=== PATIENT | male | born 1950 | race Caucasian/White ===

== ENCOUNTER 2023-06-20 16:29 | Emergency (ER) | payer SELFPAY ==
[2023-06-20] VITALS (11 sets, daily range): BP systolic 90–150; BP diastolic 61–90; PULSE 70–93; RESP 14–16; TEMP 36.6–36.8; O2SAT 95–99; BMI 32.0
--- NOTE | 2023-06-20 16:33 | PC.NURSE ---
c collar placed on pt
--- NOTE | 2023-06-20 16:38 | PC.NURSE ---
DR NOBLES AT BEDSIDE, TRAUMA ALERT, CALLED
--- NOTE | 2023-06-20 16:40 | PC.NURSE ---
TRAUMA ALERT CANCELLED PER DR NOBLES, WILL PROCEED WITH TRAUMA SCANS
--- NOTE | 2023-06-20 16:40 | PC.NURSE ---
Dr. Hall at BS for pt eval
--- NOTE | 2023-06-20 16:44 | PC.NURSE ---
DR NOBLES AT BEDSIDE FOR FAST EXAM
--- NOTE | 2023-06-20 16:48 | XR_ITS ---
PROCEDURE INFORMATION: Exam: XR Pelvis Exam date and time: 06/20/2023 5:49 PM Age: 72 years old Clinical indication: Injury or trauma; Fall; Blunt trauma (contusions or hematomas); Bilateral; Pelvic region; Additional info: Fall, trauma TECHNIQUE: Imaging protocol: Radiologic exam of the pelvis. Views: 1 or 2 view. COMPARISON: CT ANGIO ABDOMEN PELVIS 06/20/2023 5:44 PM FINDINGS: Bones/joints: No acute fracture or malalignment. Soft tissues: Unremarkable. IMPRESSION: No acute osseous findings.
--- NOTE | 2023-06-20 16:48 | XR_ITS ---
PROCEDURE INFORMATION: Exam: XR Right Humerus Exam date and time: 06/20/2023 5:49 PM Age: 72 years old Clinical indication: Injury or trauma; Fall; Blunt trauma (contusions or hematomas); Arm, upper; Right; Additional info: Fall, R shoulder through hand pain. TECHNIQUE: Imaging protocol: Radiologic exam of the right humerus. Views: 2 or more views. COMPARISON: CR XR SHOULDER RT MIN 2V 06/20/2023 5:49 PM FINDINGS: Bones/joints: Inferior shoulder dislocation. No identifiable acute fracture. Inferior glenoid subchondral cystic changes. Olecranon enthesopathy. Soft tissues: Normal. IMPRESSION: Inferior shoulder dislocation.
--- NOTE | 2023-06-20 16:48 | XR_ITS ---
PROCEDURE INFORMATION: Exam: XR Right Hand Exam date and time: 06/20/2023 5:49 PM Age: 72 years old Clinical indication: Injury or trauma; Fall; Blunt trauma (contusions or hematomas); Hand; Right; Additional info: Fall, R shoulder through hand pain. TECHNIQUE: Imaging protocol: Radiologic exam of the right hand. Views: 3 or more views. COMPARISON: CR XR WRIST RT MIN 3V 06/20/2023 5:49 PM FINDINGS: Bones/joints: No acute fracture or malalignment. 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 Several joints demonstrate periarticular calcifications. Soft tissues: Normal. IMPRESSION: No acute osseous findings.
--- NOTE | 2023-06-20 16:48 | XR_ITS ---
PROCEDURE INFORMATION: Exam: XR Right Elbow Exam date and time: 06/20/2023 5:49 PM Age: 72 years old Clinical indication: Injury or trauma; Fall; Blunt trauma (contusions or hematomas); Elbow; Right; Additional info: Fall, R shoulder through hand pain. TECHNIQUE: Imaging protocol: Radiologic exam of the right elbow. Views: 1 or 2 views. COMPARISON: CR XR HAND RT MIN 3V 06/20/2023 5:49 PM FINDINGS: Bones/joints: No acute fracture or malalignment. Olecranon enthesopathy. No joint effusion. Soft tissues: Normal. IMPRESSION: No acute osseous findings.
--- NOTE | 2023-06-20 16:48 | XR_ITS ---
PROCEDURE INFORMATION: Exam: XR Chest Exam date and time: 06/20/2023 5:49 PM Age: 72 years old Clinical indication: Injury or trauma; Fall; Blunt trauma (contusions or hematomas); Additional info: Fall, R shoulder pain TECHNIQUE: Imaging protocol: Radiologic exam of the chest. Views: 1 view. COMPARISON: CT ANGIO CHEST 06/20/2023 5:44 PM FINDINGS: Lungs: Minimal right middle lobe atelectasis. No consolidation. Pleural spaces: No pleural effusion. No pneumothorax. Heart/Mediastinum: No cardiomegaly. Diaphragm: Right diaphragmatic elevation. Bones/joints: Right inferior shoulder dislocation. IMPRESSION: 1. No acute pulmonary findings 2. Right inferior shoulder dislocation.
--- NOTE | 2023-06-20 16:48 | XR_ITS ---
PROCEDURE INFORMATION: Exam: XR Right Shoulder Exam date and time: 06/20/2023 5:49 PM Age: 72 years old Clinical indication: Injury or trauma; Fall; Blunt trauma (contusions or hematomas); Shoulder; Right; Additional info: Fall, R shoulder through hand pain. TECHNIQUE: Imaging protocol: Radiologic exam of the right shoulder. Views: 2 or more views. COMPARISON: CR XR HUMERUS RT 06/20/2023 5:49 PM FINDINGS: Bones/joints: Inferior shoulder dislocation. No identifiable acute fracture. Inferior glenoid subchondral cystic changes. Soft tissues: Normal. IMPRESSION: Inferior shoulder dislocation.
--- NOTE | 2023-06-20 16:48 | XR_ITS ---
PROCEDURE INFORMATION: Exam: XR Right Wrist Exam date and time: 06/20/2023 5:49 PM Age: 72 years old Clinical indication: Injury or trauma; Fall; Blunt trauma (contusions or hematomas); Wrist; Right; Additional info: Fall, R shoulder through hand pain. TECHNIQUE: Imaging protocol: Radiologic exam of the right wrist. Views: 3 or more views. COMPARISON: CR XR HAND RT MIN 3V 06/20/2023 5:49 PM FINDINGS: Bones/joints: No acute fracture or malalignment. 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 Amorphous calcifications adjacent to the distal ulna may represent calcific tendinitis. Soft tissues: Normal. IMPRESSION: No acute osseous findings.
--- NOTE | 2023-06-20 16:49 | CT_ITS ---
PROCEDURE INFORMATION: Exam: CTA Head With Contrast, Arteriography Exam date and time: 06/20/2023 5:40 PM Age: 72 years old Clinical indication: Injury or trauma; Fall; Blunt trauma; Head and neck; Additional info: Trauma, critical injury suspected TECHNIQUE: Imaging protocol: Computed tomographic angiography of the head with contrast. Exam focused on the arteries. 3D rendering (Not supervised by radiologist): MIP and/or 3D reconstructed images were created by the technologist. Radiation optimization: All CT scans at this facility use at least one of these dose optimization techniques: automated exposure control; mA and/or kV adjustment per patient size (includes targeted exams where dose is matched to clinical indication); or iterative reconstruction. Contrast material: ISO 370; Contrast volume: 100 ml; Contrast route: INTRAVENOUS (IV); COMPARISON: CT HEAD/BRAIN WO CON 06/20/2023 5:40 PM FINDINGS: ANTERIOR CIRCULATION: Right internal carotid artery: Intracranial segment is patent with no significant stenosis. No aneurysm. Right middle cerebral artery: No occlusion or significant stenosis. No aneurysm. Right anterior cerebral artery: No occlusion or significant stenosis. No aneurysm. Left internal carotid artery: Intracranial segment is patent with no significant stenosis. No aneurysm. Left middle cerebral artery: No occlusion or significant stenosis. No aneurysm. Left anterior cerebral artery: No occlusion or significant stenosis. No aneurysm. POSTERIOR CIRCULATION: Right vertebral artery: No occlusion or significant stenosis. No aneurysm. Left vertebral artery: No occlusion or significant stenosis. No aneurysm. Basilar artery: No occlusion or significant stenosis. No aneurysm. Right posterior cerebral artery: No occlusion or significant stenosis. No aneurysm. Left posterior cerebral artery: No occlusion or significant stenosis. No aneurysm. Brain: Regions of encephalomalacia/gliosis in the anterior frontal lobes are re-identified Cerebral ventricles: No ventriculomegaly. Bones/joints: Unremarkable. No acute fracture. Soft tissues: Unremarkable. IMPRESSION: No large vessel stenosis or occlusion.
--- NOTE | 2023-06-20 16:49 | CT_ITS ---
PROCEDURE INFORMATION: Exam: CT Cervical Spine Without Contrast Exam date and time: 06/20/2023 5:33 PM Age: 72 years old Clinical indication: Injury or trauma; Fall; Blunt trauma; Additional info: Trauma, critical injury suspected TECHNIQUE: Imaging protocol: Computed tomography of the cervical spine without contrast. Radiation optimization: All CT scans at this facility use at least one of these dose optimization techniques: automated exposure control; mA and/or kV adjustment per patient size (includes targeted exams where dose is matched to clinical indication); or iterative reconstruction. COMPARISON: No relevant prior studies available. FINDINGS: Bones/joints: Congenital non-fusion of the posterior arch of C1. Vertebral alignment is maintained. There is preservation of vertebral body heights. Facet joints are aligned. Odontoid process is intact. Atlantoaxial interval maintained. No acute fracture. Uncovertebral and facet arthropathy result in varying degrees of neural foraminal narrowing at multiple levels. Status post C3-C6 right hemilaminectomies. Cerclage wires and transpedicular rods are intact. Lungs: Lung apices are normal. Soft tissues: Prevertebral and paravertebral soft tissues are maintained IMPRESSION: No acute fracture. No traumatic subluxation.
--- NOTE | 2023-06-20 16:49 | CT_ITS ---
PROCEDURE INFORMATION: Exam: CT Head Without Contrast Exam date and time: 06/20/2023 5:40 PM Age: 72 years old Clinical indication: Injury or trauma; Fall; Blunt trauma (contusions or hematomas); Additional info: Trauma, critical injury suspected TECHNIQUE: Imaging protocol: Computed tomography of the head without contrast. Radiation optimization: All CT scans at this facility use at least one of these dose optimization techniques: automated exposure control; mA and/or kV adjustment per patient size (includes targeted exams where dose is matched to clinical indication); or iterative reconstruction. COMPARISON: CT ANGIO HEAD 06/20/2023 5:40 PM FINDINGS: Brain: Bilateral regions of encephalomalacia/gliosis in the anterior frontal lobes. There is no evidence of acute intracranial hemorrhage, extra-axial collection or locoregional mass effect. There are scattered hypodensities in the periventricular and subcortical white matter. The appearance is nonspecific, but most likely represents chronic small vessel disease in a person of this age Cerebral ventricles: The ventricles, sulci and cisterns are normal in size and configuration for patient's age. No hydrocephalus or midline structure shift Pituitary gland and sella: Sellar/parasellar structures, craniocervical junction and orbits are unremarkable Paranasal sinuses: Visualized sinuses are unremarkable. No fluid levels. Mastoid air cells: Visualized mastoid air cells are well aerated. Bones/joints: No calvarial fracture Soft tissues: Unremarkable. IMPRESSION: 1. No acute intracranial abnormality. No calvarial fracture. 2. Bilateral regions of encephalomalacia/gliosis in the anterior frontal lobes.
--- NOTE | 2023-06-20 16:49 | CT_ITS ---
PROCEDURE INFORMATION: Exam: CTA Abdomen and Pelvis With Contrast Exam date and time: 06/20/2023 5:44 PM Age: 72 years old Clinical indication: Injury or trauma; Fall; Blunt trauma; Lower abdominal or back area; Bilateral; Additional info: Trauma, critical injury suspected TECHNIQUE: Imaging protocol: Computed tomographic angiography of the abdomen and pelvis with contrast. Exam focused on the arteries. 3D rendering (Not supervised by radiologist): MIP and/or 3D reconstructed images were created by the technologist. Radiation optimization: All CT scans at this facility use at least one of these dose optimization techniques: automated exposure control; mA and/or kV adjustment per patient size (includes targeted exams where dose is matched to clinical indication); or iterative reconstruction. Contrast material: ISO 370; Contrast volume: 100 ml; Contrast route: INTRAVENOUS (IV); COMPARISON: CT ANGIO CHEST 06/20/2023 5:44 PM FINDINGS: Aorta: Mild atherosclerosis. No aortic aneurysm. No aortic dissection. Celiac trunk and mesenteric arteries: No occlusion or significant stenosis. Renal arteries: No occlusion or significant stenosis. Right iliac arteries: No occlusion or significant stenosis. Left iliac arteries: No occlusion or significant stenosis. Liver: Subcentimeter hypodense focus within the peripheral right hepatic lobe, too small to fully characterize, although may represent a cyst. Gallbladder and bile ducts: Unremarkable. No calcified stones. No ductal dilation. Pancreas: No mass. Mildly dilated proximal main pancreatic duct measuring up to 6 mm without identifiable obstructing process. Spleen: Small calcified granulomas. No splenomegaly. Adrenal glands: Bilateral adrenal gland thickening. Kidneys and ureters: Unremarkable. No solid mass. No hydronephrosis. Stomach and bowel: Fecalization of the terminal ileum indicative of delayed transit. No obstruction. No mucosal thickening. Appendix: No evidence of appendicitis. Intraperitoneal space: Unremarkable. No free air. No significant fluid collection. Lymph nodes: Unremarkable. No enlarged lymph nodes. Urinary bladder: Unremarkable. No mass. Reproductive: Postprocedural changes of the prostate Bones/joints: No acute fracture. Degenerative changes. Soft tissues: Postsurgical changes of inguinal hernia repair. Small fat containing periumbilical hernia. IMPRESSION: 1. No acute posttraumatic findings within the abdomen or pelvis. 2. Nonspecific mildly dilated proximal main pancreatic duct measuring up to 6 mm without identifiable obstructing process.
--- NOTE | 2023-06-20 16:49 | CT_ITS ---
PROCEDURE INFORMATION: Exam: CT Thoracic Spine Without Contrast Exam date and time: 06/20/2023 5:35 PM Age: 72 years old Clinical indication: Injury or trauma; Fall; Blunt trauma (contusions or hematomas); Additional info: Trauma, critical injury suspected TECHNIQUE: Imaging protocol: Computed tomography of the thoracic spine without contrast. Radiation optimization: All CT scans at this facility use at least one of these dose optimization techniques: automated exposure control; mA and/or kV adjustment per patient size (includes targeted exams where dose is matched to clinical indication); or iterative reconstruction. COMPARISON: CT CERVICAL SPINE WO CON 06/20/2023 5:33 PM FINDINGS: Bones/joints: Thoracic vertebrae normal in height. Mild dextroconvex curvature. T3 vertebral body osseous hemangioma. No acute fracture. Multilevel degenerative changes. Right T10-11 and T11-12 neural foraminal narrowing. No severe spinal canal stenosis. Soft tissues: Minimal upper back subcutaneous soft tissue swelling. IMPRESSION: No acute osseous findings.
--- NOTE | 2023-06-20 16:49 | CT_ITS ---
PROCEDURE INFORMATION: Exam: CTA Chest With Contrast Exam date and time: 06/20/2023 5:44 PM Age: 72 years old Clinical indication: Injury or trauma; Fall; Blunt trauma (contusions or hematomas); Additional info: Trauma, critical injury suspected TECHNIQUE: Imaging protocol: Computed tomographic angiography of the chest with contrast. Exam focused on the arteries. 3D rendering (Not supervised by radiologist): MIP and/or 3D reconstructed images were created by the technologist. Radiation optimization: All CT scans at this facility use at least one of these dose optimization techniques: automated exposure control; mA and/or kV adjustment per patient size (includes targeted exams where dose is matched to clinical indication); or iterative reconstruction. Contrast material: ISO 370; Contrast volume: 100 ml; Contrast route: INTRAVENOUS (IV); COMPARISON: CT ANGIO ABDOMEN PELVIS 06/20/2023 5:44 PM FINDINGS: Pulmonary arteries: Normal. No pulmonary emboli. Aorta: Unremarkable. No aortic aneurysm. No aortic dissection. Lungs: Mild right middle and right lower lobe atelectasis. No consolidation. Few small calcified granulomas. No masses. Pleural spaces: Unremarkable. No pneumothorax. No pleural effusion. Heart: Unremarkable. No cardiomegaly. No pericardial effusion. Coronary arteries: No significant coronary artery calcifications. Lymph nodes: Small calcified mediastinal and hilar lymph nodes. No enlarged lymph nodes. Diaphragm: Right diaphragmatic elevation. Small hiatal hernia. Bones/joints: Degenerative changes. Right inferior shoulder dislocation. No acute fracture. Chronic appearing right posterior 11th rib fracture. Soft tissues: Unremarkable. IMPRESSION: 1. No acute posttraumatic findings within the chest. 2. Right inferior shoulder dislocation.
--- NOTE | 2023-06-20 16:49 | CT_ITS ---
PROCEDURE INFORMATION: Exam: CT Lumbar Spine Without Contrast Exam date and time: 06/20/2023 5:37 PM Age: 72 years old Clinical indication: Injury or trauma; Fall; Blunt trauma (contusions or hematomas); Additional info: Trauma, critical injury suspected TECHNIQUE: Imaging protocol: Computed tomography of the lumbar spine without contrast. Radiation optimization: All CT scans at this facility use at least one of these dose optimization techniques: automated exposure control; mA and/or kV adjustment per patient size (includes targeted exams where dose is matched to clinical indication); or iterative reconstruction. COMPARISON: CT THORACIC SPINE WO CON 06/20/2023 5:35 PM FINDINGS: Bones/joints: Lumbar vertebrae normal in height. Minimal retrolisthesis L2 on L3. No acute fracture. Multilevel degenerative changes. Varying degrees of neural foraminal narrowing. No severe spinal canal stenosis. Additional degenerative changes of the bilateral sacroiliac joints. Soft tissues: Unremarkable. IMPRESSION: No acute osseous findings.
--- NOTE | 2023-06-20 16:49 | CT_ITS ---
PROCEDURE INFORMATION: Exam: CTA Neck With Contrast Exam date and time: 06/20/2023 5:40 PM Age: 72 years old Clinical indication: Injury or trauma; Fall; Blunt trauma; Head and neck; Additional info: Trauma, critical injury suspected TECHNIQUE: Imaging protocol: Computed tomographic angiography of the neck with contrast. Exam focused on the cervical segments of the vasculature. 3D rendering (Not supervised by radiologist): MIP and/or 3D reconstructed images were created by the technologist. Radiation optimization: All CT scans at this facility use at least one of these dose optimization techniques: automated exposure control; mA and/or kV adjustment per patient size (includes targeted exams where dose is matched to clinical indication); or iterative reconstruction. Contrast material: ISO 370; Contrast volume: 100 ml; Contrast route: INTRAVENOUS (IV); COMPARISON: CT CERVICAL SPINE WO CON 06/20/2023 5:33 PM FINDINGS: Right common carotid artery: No stenosis. No dissection or occlusion. Right internal carotid artery: No stenosis of the extracranial segment. No dissection or occlusion. Right external carotid artery: No occlusion or stenosis of the origin. Left common carotid artery: No stenosis. No dissection or occlusion. Left internal carotid artery: No stenosis of the extracranial segment. No dissection or occlusion. Left external carotid artery: No occlusion or stenosis of the origin. Right vertebral artery: No stenosis. No dissection or occlusion. Left vertebral artery: No stenosis. No dissection or occlusion. Soft tissues: Normal. No significant soft tissue swelling. Bones/joints: For findings in the cervical spine, please refer to the separately dictated cervical spine CT report under a separate accession number. IMPRESSION: No stenosis or occlusion. REFERENCES: NASCET CRITERIA. The degree of stenosis in the cervical segment of the internal carotid artery is based on NASCET criteria. Normal is no stenosis. Mild is less than 50% stenosis. Moderate is 50-69% stenosis. Severe is 70% to 99% stenosis. Total occlusion is no detectable patent lumen.
--- NOTE | 2023-06-20 16:52 | ED_ITS ---
Discharge Plan Disposition Patient Disposition: Home, Self-Care Referrals Follow up/Referrals: Bassem Hanson DO [Staff Physician] - See instructions Provider,Referral, [Referring] - See instructions Activity Restrictions/Add. Instructions Additional Instructions/Restrictions: Call your family doctor to establish care for this visit to the emergency department and schedule follow-up within 48 hours to ensure improvement. If you have any worsening of your condition or any other concerning signs or symptoms, return to the emergency department or your primary care doctor for further evaluation. Call Dr. Hanson, orthopedics, for further care for your shoulder dislocation. Do not bear weight on right shoulder. Wear sling at all times other than when sleeping to prevent strangulation, until follow-up with Dr. Hanson. Clinical Impressions Clinical Impression: Closed dislocation of right shoulder Qualifiers: Encounter type: initial encounter Qualified Code(s): S43.004A - Unspecified dislocation of right shoulder joint, initial encounter Fall Qualifiers: Encounter type: initial encounter Qualified Code(s): W19.XXXA - Unspecified fall, initial encounter Instructions Patient Instructions: DI for Moderate Sedation, Moderate Sedation Discharge ED Provider: Dominik Hall General Adult HPI General Chief complaint: Fall Stated complaint: AO02/14@1530 fall RT arm, hand, Time Seen by Provider: 06/20/23 16:31 Mode of Arrival: Wheelchair Limitations: No Limitations Description of Symptoms (Recalled from ER Triage Doc. by RN): Patient fell 15-20 feet off of a ladder injuring his right shoulder and cut his right hand. Denies LOC or blood thinner use. History of Present Illness HPI narrative: 72-year-old male no reported past medical history not currently on anticoagulation presenting with fall. Patient states that 2 hours prior to this ER visit, he was on a ladder approximately 15 feet up. Fell off the ladder, landed on his right shoulder. No loss of consciousness. Patient complaining of unbearable pain in his right shoulder that does not radiate. He is also complaining of a cut in his right hand. Denies chest pain, neck pain, back pain, nausea vomiting, abdominal pain, difficulty ambulating, or any other concerns. Related Data Allergies Allergy/AdvReac Type Severity Reaction Status Date / Time No Known Allergies Allergy Verified 06/20/23 16:42 [facility] Disclaimer: The information contained in this section may have been updated after the patient was seen, as this information can be updated by other users. Social History Smoking Status: Never smoker alcohol intake: never current occupational status: employed Travel in the last 8 weeks: None ROS Obtained: Yes All systems reviewed & no additional complaints except as documented Physical Exam General General appearance: alert and in distress (Secondary to pain) Head Head exam: atraumatic and normocephalic Eye Eye exam: Present normal appearance, PERRL and EOMI ENT ENT exam: Present mucous membranes moist Neck Neck exam: Present normal inspection, full ROM, trachea midline and other (Francine shahid in cervical collar out of precaution); Absent tenderness Chest Chest inspection: Present normal inspection and symmetric chest wall rise; Absent tenderness Respiratory Respiratory exam: Present normal lung sounds bilaterally; Absent respiratory distress, wheezes, stridor, accessory muscle use or prolonged expiratory phase Cardiovascular Cardiovascular exam: Present regular rate and normal rhythm Abdominal Exam Abdominal exam: Present soft; Absent distention, tenderness, guarding, rebound or rigidity Extremities Exam Extremities exam: Present other (Deformity at right proximal shoulder. Concern for dislocation. Neurovascularly intact with no evidence of sensory or motor deficits. Patient does have skin tears on right palm without obvious a bnormality.); Absent edema Back Exam Back exam: Present normal inspection; Absent tenderness or vertebral tenderness Neurological Exam Neurological exam: Present alert, oriented X3, CN II-XII intact, normal gait and other (Right upper extremity exam limited secondary to pain and swelling. Pulses intact. Concern for fracture versus fracture dislocation right shoulder. Sensation and motor intact to elbow, wrist, digits.) Skin Skin exam: Present warm and dry; Absent diaphoresis or erythema Medical Decision Making Medical Records Medical records reviewed: Yes I reviewed the patient's medical records. Fadi Inquiry Pt receiving controlled substance: No Fadi was queried for this patient: No Vital Signs: 06/20/23 16:30 06/20/23 16:43 06/20/23 17:00 Temperature 97.9 F 97.9 F Temperature Source Oral Oral Pulse Rate 71 Pulse Rate [Radial] 70 70 Respiratory Rate 16 16 Blood Pressure 125/62 Blood Pressure [Left Arm] 131/61 128/64 Blood Pressure Mean [Left Arm] 84 85 Blood Pressure Source Blood Pressure Source [Left Arm] Automatic Cuff Manual Cuff/ Auscultation Blood Pressure Position Blood Pressure Position [Left Arm] Sitting Sitting 02 Sat by Pulse Oximetry 98 98 97 Oxygen Delivery Method Room Air Room Air Room Air Oxygen Flow Rate (LPM) 06/20/23 18:32 06/20/23 19:09 06/20/23 19:14 Temperature 98.0 F 98.0 F Temperature Source Oral Oral Pulse Rate 81 Pulse Rate [Radial] 77 79 Respiratory Rate 15 15 Blood Pressure 134/72 Blood Pressure [Left Arm] 134/77 136/82 Blood Pressure Mean [Left Arm] 96 100 Blood Pressure Source Blood Pressure Source [Left Arm] Automatic Cuff Automatic Cuff Blood Pressure Position Blood Pressure Position [Left Arm] Supine Sitting 02 Sat by Pulse Oximetry 96 96 95 Oxygen Delivery Method Room Air Room Air Room Air Oxygen Flow Rate (LPM) 06/20/23 19:19 06/20/23 19:24 06/20/23 19:30 Temperature 98.0 F 98.0 F 98.0 F Temperature Source Oral Oral Oral Pulse Rate Pulse Rate [Radial] 87 93 H 89 Respiratory Rate 14 16 16 Blood Pressure Blood Pressure [Left Arm] 90/71 L 144/90 H 150/85 H Blood Pressure Mean [Left Arm] 77 108 106 Blood Pressure Source Blood Pressure Source [Left Arm] Automatic Cuff Automatic Cuff Automatic Cuff Blood Pressure Position Blood Pressure Position [Left Arm] Sitting Sitting Supine 02 Sat by Pulse Oximetry 96 98 98 Oxygen Delivery Method Nasal Cannula Nasal Cannula Room Air Oxygen Flow Rate (LPM) 6 6 06/20/23 19:29 06/20/23 20:34 Temperature 98.0 F 98.3 F Temperature Source Oral Oral Pulse Rate 70 Pulse Rate [Radial] 90 Respiratory Rate 16 16 Blood Pressure 105/69 L Blood Pressure [Left Arm] 144/90 H Blood Pressure Mean [Left Arm] 108 Blood Pressure Source Automatic Cuff Blood Pressure Source [Left Arm] Automatic Cuff Blood Pressure Position Sitting Blood Pressure Position [Left Arm] Supine 02 Sat by Pulse Oximetry 99 Oxygen Delivery Method Nasal Cannula Room Air Oxygen Flow Rate (LPM) 6 Lab Data Lab Results 06/20/23 16:44: WBC 7.7, RBC 4.20 L, Hgb 14.9, Hct 40.1 L, MCV 95.7 H, MCH 35.6 H, MCHC 37.2 H, RDW 13.3, Plt Count 264, MPV 8.7, Neut % (Auto) 64.6, Lymph % (Auto) 27.1, [place] % (Auto) 5.7, Eos % (Auto) 2.1, Baso % (Auto) 0.5, Neut # (Auto) 5.0, Lymph # (Auto) 2.1, [place] # (Auto) 0.4, Eos # (Auto) 0.2, Baso # (Auto) 0.0, PT 10.5, INR 0.97, APTT 22.7 L, Sodium 137, Potassium 3.7, Chloride 106, Carbon Dioxide 27, Anion Gap 7.7, BUN 15, Creatinine 1.00, Estimated Creat Clear 74, Estimated GFR 73, Est GFR ( Amer) 89, Glucose 142 H, Calcium 9.2, Total Bilirubin 0.4, AST 31, ALT 29, Alkaline Phosphatase 77, Total Protein 7.3, Albumin 4.2, Globulin 3.1, Albumin/Globulin Ratio 1.4 06/20/23 16:44 06/20/23 16:44 Orders (Tests/Meds): ED MEDICATIONS Discontinued Medications Generic Name Dose Route Start Last Admin Trade Name Freq PRN Reason Stop Dose Admin Hydromorphone HCl 0.5 mg 06/20/23 16:50 06/20/23 16:57 Hydromorphone 2mg/Ml Syringe IV 06/20/23 16:51 0.5 mg ONCE ONE Administration Hydromorphone HCl 0.5 mg 06/20/23 17:13 06/20/23 17:19 Hydromorphone 2mg/Ml Syringe IV 06/20/23 17:14 0.5 mg ONCE ONE Administration Iopamidol 200 ml 06/20/23 17:59 06/20/23 17:59 Iopamidol-370 (76%);100ml Bottle IV 06/20/23 18:00 200 ml ONCE ONE Administration Ketamine HCl 160 mg 06/20/23 18:23 06/20/23 20:07 Ketamine 50mg/1ml Syringe IV 06/20/23 18:24 25 mg ONCE ONE Administration Lidocaine HCl 10 ml 06/20/23 17:11 06/20/23 20:04 Lidocaine 1% 10ml Mdv SQ 06/20/23 17:12 10 ml ONCE ONE Administration Propofol 100 mg 06/20/23 18:25 06/20/23 20:03 Propofol 10mg/Ml 20ml Vial IV 06/20/23 18:26 100 mg ONCE ONE Administration Sodium Chloride 10 ml 06/20/23 16:52 Sodium Chloride 0.9% 10ml Flush Syringe IV 07/20/23 16:51 NEEDED PRN Maintain IV Site Sodium Chloride 50 ml 06/20/23 17:59 06/20/23 17:59 0.9 % Sodium Chloride 50 Ml Vial IV 06/20/23 18:00 50 ml ONCE ONE Administration Sodium Chloride 10 ml 06/20/23 17:59 06/20/23 17:59 Sodium Chloride 0.9% 10ml Syr (Rad Only) IV 06/20/23 18:00 10 ml ONCE ONE Administration Tetanus/Reduced Diphtheria/Acell Pertussis 0.5 ml 06/20/23 17:11 06/20/23 20:18 Tet/Diphth/Pert-Adult 0.5ml Syringe IM 06/20/23 17:12 0.5 ml .ONCE ONE Administration ORDERS Category Date Time Status CT angio abdomen pelvis Stat Cat Scan 06/20/23 16:[address] angio chest - dissection Stat Cat Scan 06/20/23 16:[address] angio head Stat Cat Scan 06/20/23 16:[address] angio neck Stat Cat Scan 06/20/23 16:[address] cervical spine wo con Stat Cat Scan 06/20/23 16:[address] head/brain wo con Stat Cat Scan 06/20/23 16:[address] lumbar spine wo con Stat Cat Scan 06/20/23 16:[address] thoracic spine wo con Stat Cat Scan 06/20/23 16:49 Completed Chest XR -- portable [XR chest portable] Stat Exams 06/20/23 16:48 Completed Elbow XR right 2 views [XR elbow RT 2V] Stat Exams 06/20/23 16:48 Completed Hand XR right minimum 3 views [XR hand RT min 3V] Stat Exams 06/20/23 16:48 Completed Humerus XR right [XR humerus RT] Stat Exams 06/20/23 16:48 Completed POCUS Point of Care (ER Only) Stat Exams 06/20/23 16:42 Completed Pelvis XR 1-2 views [XR pelvis 1-2V] Stat Exams 06/20/23 16:48 Completed Shoulder XR right miminum 2 views [XR shoulder RT min Exams 06/20/23 16:48 Completed 2V] Stat Wrist XR right minimum 3 views [XR wrist RT min 3V] Exams 06/20/23 16:48 Completed Stat XR shoulder RT 1V Stat Exams 06/20/23 19:18 Completed CBC w/Auto Diff [Complete Blood Count Auto Diff] Stat Lab 06/20/23 16:44 Completed CMP [Comprehensive Metabolic Panel] Stat Lab 06/20/23 16:44 Completed PT INR [Prothrombin Time INR] Stat Lab 06/20/23 16:44 Completed PTT [Activated Partial Thrombo Time] Stat Lab 06/20/23 16:44 Completed Medical Decision Narrative: 72-year-old male no reported past medical history not currently on anticoagulation presenting with fall. Patient states that 2 hours prior to this ER visit, he was on a ladder approximately 15 feet up. Fell off the ladder, landed on his right shoulder. No loss of consciousness. Patient complaining of unbearable pain in his right shoulder that does not radiate. He is also complaining of a cut in his right hand. Denies chest pain, neck pain, back pain, nausea vomiting, abdominal pain, difficulty ambulating, or any other concerns. History was obtained via conversation with patient. On arrival, patient hemodynamically stable, alert, oriented x4, appropriate, GCS 15, moving all extremities spontaneously, pupils equal and reactive to light. Full physical exam performed and significant for 72-year-old male who is in acute distress secondary to pain. Deformity right upper extremity at shoulder concerning for fracture dislocation versus isolated dislocation. Neurovascular ly intact distally to that. He does have superficial abrasions and lacerations on palm of right hand, but unable to fully evaluate secondary to immobility of right shoulder. Cardiopulmonary exam within normal limits, abdomen soft, nontender. Pelvis stable. No lower extremity pain. Differential includes dislocation, fracture, fracture dislocation, neurovascular injury, intracranial bleed, cervical spine fracture, intrathoracic versus intra- abdominal vascular injury, among others. Patient was given 0.5 mg Dilaudid IV for symptomatic management and correction of underlying abnormalities. Workup independently interpreted and significant for nonactionable CBC or chemistry. Coags negative. Trauma survey with CT independently interpreted. No acute vertebral injury of the C, T, L-spine. No intracranial hemorrhage. No acute intrathoracic, intra-abdominal or intrapelvic injuries. Right upper extremity films without concern for osseous injury, but patient does have right shoulder dislocation. See radiology read for full review of final results. On reevaluation, patient was consented for procedural sedation. Patient was sedated with propofol and ketamine. Shoulder was reduced. Postreduction films with successful reduction of shoulder. Postreduction neurovascular exam within normal limits. Patient was placed in sling, laceration on thenar eminence of right hand was cleaned and closed. Given patient presentation, workup, history, this most likely represents right upper extremity injuries in the setting of fall from 15 feet off a ladder. Because patient at baseline without signs or symptoms of clinical decompensation, deemed appropriate for discharge. Results w ere relayed to patient who voiced understanding and were agreeable to outpatient management and follow up. At the time of discharge the patient was hemodynamically stable, tolerating PO, and mobilizing appropriately. Procedures Laceration Laceration 1: Site: hand Side (If applicable): right Size (cm): 3 Description: linear and flap Depth: simple, single layer Local Anesthetic: lidocaine 1% Amount of anesthesia used (mL): 5 Pre-repair: wound explored and irrigated extensively Skin layer closed with: nylon Size (cm): 4-0 Number of sutures: 10 Technique: simple, interrupted Orthopedic Joint Reduction Joint #1: Time Out Performed: Yes Side: right Joint Reduction Location: shoulder Analgesia: procedural sedation Amount of anesthesic used (mL): 125 Shoulder Technique Used (if applicable): traction/counter-traction Technique used: traction/counter-traction Post-reduction neuro exam: intact and no change Post-reduction vascular: intact and no change Post Reduction X-Ray Obtained: Yes Post Reduction X-Ray Results: reduced Splint Applied: Yes (Sling) Patient Tolerated Procedure: well Procedural Sedation A heart and lung assessment was performed on this patient at: 19:20 Mallampati Score:: Class II Indication: fracture/dislocation reduction ASA Class: I Preparation: energy control officer applied, pulse oximeter, capnometry used, supplemental O2 applied, suction/airway equipment at bedside and IV secured Ketamine dose (mg): 25 IV Propofol dose (mg): 100 Patient Tolerated Procedure: well Complications: none Limited Ultrasound Indication:: Limited EFAST ultrasound Indication: Blunt trauma after fall Views: LUQ, RUQ, Pelvis, Limited Cardiac, Limited Thoracic Interpretation: Peritoneal Free Fluid: Absent Pericardial effusion: Absent Right thoracic free Fluid: Absent Left thoracic Free Fluid: Absent Right lung pneumothorax: Absent Left Lung pneumothorax: Absent Impression: Negative EFAST ultrasound Images were saved to permanent archive The study was technically adequate CPT 84551-68 (limited cardiac) 32689-86 (limited abdominal) 88701-10 (chest) This study was performed by me, and I personally interpreted all images/videos. Based on my clinical judgement, these images were adequate and did necessitate further imaging. Critical Care Critical Care Time Critical Care Time: Yes (orthopedic) Attestation: On 06/20/23, the high probability of a clinically significant, sudden or life threatening deterioration of the following system(s) required my full and direct attention, intervention and personal management. The time I documented below is in addition to time spent performing reported procedures but includes the following listed in this critical care notation. Total Time Total Critical Care Time: 45
[2023-06-20] MEDS: HYDROMORPHONE 2MG/ML SYRINGE 0.5 MG IV ×2 (16:57→17:19)
--- NOTE | 2023-06-20 17:00 | PC.NURSE ---
DR NOBLES AT BEDSIDE TO REEVALUATE PT AND UPDATE
--- NOTE | 2023-06-20 17:00 | PC.NURSE ---
Dr. Hall at BS to update pt/visitor on POC
[2023-06-20 17:17] LABS: Basophils % 0.5 % (0.1-2.0); Eosinophils # 0.2 K/mm3 (0.0-0.4); Eosinophils % 2.1 % (0.1-12.0); Hematocrit 40.1 % (42.0-52.0); Hemoglobin 14.9 g/dL (14.1-18.0); Lymphocytes # 2.1 K/mm3 (0.7-4.5); Lymphocytes % 27.1 % (10-50); Mean Corpuscular HGB Conc 37.2 g/dL (31.8-35.4); Mean Corpuscular Hemoglobin 35.6 pg (27.0-31.2); Mean Corpuscular Volume 95.7 fl (80-94); Mean Platelet Volume 8.7 fl (7.4-10.4); Monocytes # 0.4 K/mm3 (0.1-1.0); Monocytes % 5.7 % (1.7-9.3); Neutrophils % 64.6 % (37.0-80.0); Platelet Count 264 K/mm3 (142-424); Red Cell Distribution Width 13.3 % (11.5-17.5); White Blood Count 7.7 K/mm3 (4.8-10.8)
[2023-06-20 17:18] LABS: Chloride 106 mmol/L (98-107)
[2023-06-20 17:19] LABS: Potassium 3.7 mmoL/L (3.5-5.1); Sodium 137 mmol/L (136-145)
[2023-06-20 17:21] LABS: Alanine Aminotransferase 29 U/L (12-78); Albumin Level 4.2 g/dl (3.5-5.0); Alkaline Phosphatase 77 U/L (38-126); Aspartate Amino Transferase 31 U/L (17-59); Bilirubin,Total 0.4 mg/dl (0.2-1.3); Blood Urea Nitrogen 15 mg/dl (9-20); Creatinine Clearance Estimated 74 mL/min (50-200); Estimated Glomerular Filt Rate 73 ml/min (>60); GFR (African American) 89 ML/MIN (>60)
[2023-06-20 17:22] LABS: Albumin/Globulin Ratio 1.4 (1.1-1.8); Anion Gap 7.7 mEq/L (5-15); Calcium 9.2 mg/dl (8.4-10.2); Carbon Dioxide 27 mmol/L (22.0-30.0); Globulin 3.1 g/dL (1.3-3.2); Glucose 142 mg/dl (74-100); Total Protein,Serum 7.3 g/dl (6.3-8.2)
[2023-06-20 17:26] LABS: Activated Partial Thrombo Time 22.7 seconds (22.8-30.6); INR 0.97 (0.9-1.1); Prothrombin Time 10.5 seconds (10.1-12.5)
--- NOTE | 2023-06-20 17:27 | PC.NURSE ---
Pt gone to RAD via stretcher
[2023-06-20] MEDS: 0.9 % SODIUM CHLORIDE 50 ML VIAL IV (17:59)
[2023-06-20] MEDS: SODIUM CHLORIDE 0.9% 10ML SYR (RAD ONLY) 10 ML IV (17:59)
[2023-06-20] MEDS: IOPAMIDOL-370 (76%);100ML BOTTLE 200 ML IV (17:59)
--- NOTE | 2023-06-20 18:11 | PC.NURSE ---
Pt returned from RAD
--- NOTE | 2023-06-20 18:45 | PC.NURSE ---
DR NOBLES AT BEDSIDE TO EXPLAIN PROCEDURE TO PT AND
--- NOTE | 2023-06-20 19:18 | XR_ITS ---
PROCEDURE INFORMATION: Exam: XR Right Shoulder Exam date and time: 06/20/2023 7:27 PM Age: 72 years old Clinical indication: Abnormal findings; Abnormal imaging study of the limbs; Post reduction TECHNIQUE: Imaging protocol: Radiologic exam of the right shoulder. Views: 1 view. COMPARISON: CR XR SHOULDER RT MIN 2V 06/20/2023 5:49 PM FINDINGS: Bones/joints: Successful reduction of a previous inferior shoulder dislocation. No identifiable acute fracture. Soft tissues: Normal. IMPRESSION: Successful reduction of a previous inferior shoulder dislocation.
[2023-06-20] MEDS: PROPOFOL 10MG/ML 20ML VIAL 100 MG IV (20:03)
[2023-06-20] MEDS: LIDOCAINE 1% 10ML MDV 10 ML SQ (20:04)
[2023-06-20] MEDS: KETAMINE 50MG/1ML SYRINGE 160 MG IV (20:07)
[2023-06-20] MEDS: TET/DIPHTH/PERT-ADULT 0.5ML SYRINGE 0.5 ML IM (20:18)
--- NOTE | 2023-06-20 22:02 | PC.NURSE ---
chart accessed for ortho paperwork
== END 2023-06-20 20:35 | disposition home or self-care (01) ==
PROVIDERS: Emergency Provider Emergency Medicine; PCP Registered Nurse
DX: S43.034A Inferior dislocation of right humerus, initial encounter (principal); S61.411A Laceration without foreign body of right hand, initial encounter; W11.XXXA Fall on and from ladder, initial encounter; Z23 Encounter for immunization
CPT/HCPCS: 12002; 70450; 70496; 70498; 71045; 71275; 72125; 72128; 72131; 72170; 73020; 73030; 73060; 73070; 73110; 73130; 74174; 80053; 85025; 85610; 85730; 90471; 90715; 96374; 96375; 96376; 99152; 99285; Q9967